=== PATIENT | female | born 1990 | race Caucasian/White ===

== ENCOUNTER 2021-10-01 08:51 | Emergency (ER) | payer MEDICAID, SELFPAY ==
[2021-10-01 08:56] VITALS: BP 135/84; PULSE 82; RESP 18; TEMP 36.5; O2SAT 98
--- NOTE | 2021-10-01 09:31 | W.ED.GENAD ---
Discharge Plan Disposition Patient Disposition: HOME Condition: Stable Discharge Details Clinical Impression: Acute otitis externa of right ear Primary Care Provider: Unknown,Unknown ED Provider: Rosmery Frecnh Home Meds and New Rx's Prescriptions: New Cipro HC 0.2-1 % drops,suspension 3 drp OT BID 10 Days Qty: 10 0RF methylprednisolone [Medrol (Jose)] 4 mg tablets,dose pack See Rx Instructions .ROUTE .COMPLEX Qty: 21 0RF Rx Instructions: orally per package directions Discharge Instructions Instructions: Otitis Externa (ED) Additional Instructions: Your symptoms appear consistent with an outer ear infection. This is an infection of your ear canal. Prescriptions for antibiotic eardrops and oral steroids have been sent electronically to your pharmacy. Drink plenty of fluids and get plenty of rest. Alternate tylenol and motrin as needed and directed for pain. You have been placed on care management's list to arrange for a follow-up appointment with a primary care doctor to establish care and for reevaluation. You were given Ear, Nose and Throat specialist contact information for follow-up information if needed. Return immediately to the emergency department if you develop any worsening or new concerning symptoms. Referrals: Thomas Real MD [ [facility] STAFF PHYSICIAN] - Discharge Data Discharge Physician: Rosmery French Medical Decision Making 31-year-old female presents with right ear pain and decreased hearing for the past 2 days. Also admits to mild decreased hearing in the left ear. Denies fever. Patient appears comfortable and nontoxic. Her left TM appears dull but no erythema or significant cerumen impaction. Right ear canal reveals edema and mild erythema with minimal clear discharge. Unable to view right TM. She has pain with pulling on auricle and palpation of tragus. She has mild bilateral anterior cervical lymphadenopathy, slightly increased on right side. Normal oropharynx. No sinus tenderness. Exam appears consistent with otitis externa. A wick was placed in the right ear canal. Prescription for Cipro HC and Medrol Dosepak sent electronically to her pharmacy. Urine test negative. She was placed on treatment as a first to arrange for a follow-up appoint with her primary care doctor to establish care and for reevaluation. She was also given ENT follow-up information if needed. Usual and customary return precautions given prior to discharge. HPI General Mode of arrival: ambulatory. Date/Time Provider Initiated Documentation: 10/01/21 08:52. Limitations to Documentation: no limitations. Information obtained by: patient. HPI Narrative: Patient is a 31-year-old female presents with right-sided hearing loss and pain for the past few days. She does admit to some mild muffled hearing in the left side but denies any left ear pain. She denies swimming recently. She states she had a similar episode occurring 1 year ago which resolved on its own only with Debrox drops. She states she started using [id number] hydrogen peroxide drops yesterday in her right ear. She denies any fever, sore throat, dental pain, dizziness or tinnitus. Related Data Home Medications Medication Instructions Recorded Confirmed ciprofloxacin 0.2 %-hydrocortisone 3 drp otic (ear) BID 10 days #10 mL 10/01/21 1 % ear drops,suspension (Cipro HC) methylprednisolone 4 mg tablets in See Rx Instructions PO .COMPLEX 10/01/21 a dose pack (Medrol (Jose)) #21 dose pk Previous Rx's Medication Instructions Recorded ciprofloxacin 0.2 %-hydrocortisone 3 drp otic (ear) BID 10 days #10 mL 10/01/21 1 % ear drops,suspension (Cipro HC) methylprednisolone 4 mg tablets in See Rx Instructions PO .COMPLEX 10/01/21 a dose pack (Medrol (Jose)) #21 dose pk Allergies Allergy/AdvReac Type Severity Reaction Status Date / Time No Known Allergies Allergy Unverified 10/01/21 08:59 General Stated Complaint: EarProblem CHERIE: 4 Review of Systems All systems reviewed & are unremarkable except as noted in HPI and below Constitutional Constitutional: Reports as per HPI, Denies chills and Denies fever(s) Eyes Eyes: Denies blurry vision ENT Ears, Nose, Mouth, and Throat: Denies dizziness, Reports otalgia, Reports hearing loss, Denies sore throat and Denies throat swelling Cardiovascular Cardiovascular: Denies chest pain and Denies dyspnea Respiratory Respiratory: Denies cough and Denies dyspnea Gastrointestinal Gastrointestinal: Denies abdominal pain, Denies diarrhea and Denies vomiting Genitourinary Genitourinary: Denies hematuria and Denies dysuria Musculoskeletal Musculoskeletal: Denies back pain and Denies numbness Integumentary/Breasts Skin/Breast: Denies lesions and Denies rash Neurologic Neurologic: Denies dizziness, Denies localized weakness and Denies numbness Allergic/Immunologic Allergic/Immunologic: Denies throat swelling PFSH All Active Problems (Updated 10/01/21 @ 10:12 by Rosmery French DO) Acute otitis externa of right ear (Acute) Medical History (Updated 10/01/21 @ 10:12 by Rosmery French DO) Seasonal allergies Surgical History (Updated 10/01/21 @ 10:12 by Rosmery French DO) No significant past surgical history Social History Smoking/Tobacco Use Status: Never Smoking risk assessment performed?: Yes Alcohol Intake: current Alcohol Intake frequency: holidays/special occasions only Drug use: Never Substance use type: does not use Do you feel safe at home: Yes Do you feel safe in your relationship?: Yes Exam Const General: cooperative, healthy appearing and no acute distress Orientation: alert, awake and oriented x3 HENMT Head: normal to inspection Ears: hearing grossly normal bilaterally, EAC abnormal erythema on the right, edema on the right, EAC tenderness on the right and otic discharge clear on the right and TM abnormal dull on the left General nose exam: external nose normal Mouth: oral mucosae normal Throat: posterior oropharynx normal Eyes General: appearance normal, both eyes and all related structures Neck Neck: normal visual inspection and lymphadenopathy (tender bilateral anterior cervical, slightly increased on right side) Resp Effort & Inspection: normal respiratory effort and able to speak in complete sentences Cardio Rate: regular rate Skin General skin exam: no rashes or lesions noted Neuro General: patient alert, patient awake and patient oriented x3 Motor: muscle tone normal throughout Extrem General: normal to inspection and full ROM Psych Appearance: grossly normal Affect: normal affect Course Vital Signs Vital signs: Vital Signs Temperature 97.7 F 10/01/21 08:56 Pulse 82 10/01/21 08:56 Respiratory Rate 18 10/01/21 08:56 Blood Pressure 135/84 10/01/21 08:56 Pulse Oximetry 98 10/01/21 08:56 Temperature 97.7 F 10/01/21 08:56 Temperature Source Temporal Artery Scan 10/01/21 08:56 Pulse 82 10/01/21 08:56 Respiratory Rate 18 10/01/21 08:56 Respiratory Effort Non-Labored 10/01/21 09:00 Blood Pressure 135/84 10/01/21 08:56 Blood Pressure Position Sitting 10/01/21 08:56 Pulse Oximetry 98 10/01/21 08:56 Oxygen Delivery Method Room Air 10/01/21 08:56 Oxygen Flow Rate 0 10/01/21 08:56 PAWSS Have you Been Recently Intoxicated or Drunk Within the Last 30 days?: No Have you Ever Experienced Previous Episodes of Alcohol Withdrawal?: No Have you ever Experienced Withdrawal Seizures?: No Have you ever Experienced Delirium Tremens(DT)s?: No Have you ever undergone Alcohol Rehabilitation Treatment (i.e, inpt ot outpatient treatment programs)?: No Have you ever Experienced Blackouts?: No Have you ever Combined Alcohol with other Downers within the last 90 days?: No Have you ever Combined Alcohol with any other Substance of Abuse during the last 90 days?: No Positive Blood Alcohol level on Presentation? [PCS.BAL]: No Evidence of Increased Autonomic Activity (i.e. HR>120, tremor, sweating, agitation, nausea)?: No Result: 0
--- NOTE | 2021-10-01 09:40 | NUR.NOTE ---
Nursing Note: Pt info given to care management to establish care & evaluate otitis media. Marti, ED
== END 2021-10-01 09:42 | disposition home or self-care (01) ==
PROVIDERS: Emergency Provider Physician Assistant
DX: H60.501 Unspecified acute noninfective otitis externa, right ear (principal); H91.92 Unspecified hearing loss, left ear
CPT/HCPCS: 99283; 99284

== ENCOUNTER → 2022-12-13 01:27 | Outpatient (CLI) | payer MEDICAID, SELFPAY ==
--- NOTE | 2022-12-13 07:45 | DI.MAMMO_ITS ---
Exam(s) US BREAST RT LIMITED MG MAMMO DIAGNOSTIC BI EXAM: MAMMO DIAGNOSTIC BI and U/S breast RT limited CLINICAL HISTORY: evaluate pathology, RT BREAST LUMP 9:00 FROM NIPPLE. TECHNIQUE: Craniocaudal and mediolateral oblique Full Field Digital Mammography views with Computer Aided Diagnosis followed by Tomosynthesis and limited right breast ultrasound. COMPARISON: There are no priors for comparison. This is a baseline mammogram. FINDINGS: Mammography/Tomosynthesis: Masses/Architectural Distortion: None seen. Microcalcifictions: No suspicious pleomorphic-type are seen. Skin Thickening/Nipple Retraction: None. Limited right breast US: Echotexture: Normal appearance of the glandular tissue. Shadowing: No suspicious foci. Cyst: None. Solid lesions: None seen. Ductal dilation: None. IMPRESSION: 1. No evidence of malignancy is noted. 2. Unless there is more urgent need, follow-up, as per [place] [employer] guidelines. 3. The findings were discussed with the patient on the date of the examination. BI-RADS Category 1 - Negative Breast Density - Category B - Scattered areas of fibroglandular density Breast density Category C or D implies that the patient has dense breast tissue. Dense breast tissue can make it harder to find cancer on a mammogram. Dense breast tissue is also associated with an incr eased risk of breast cancer. This information about the result of the mammogram report was provided to the patient to raise their awareness. Use this report when you speak with the patient about their risks for breast cancer, which includes their family history. At that time, you may recommend additional screening tests (Ultrasoun d or MRI) as these tests may add significant information. A negative radiographic report should not delay biopsy if a dominant or clinically suspicious mass is present. Up to ten percent of cancers are not identified on mammography. A negative report may reinforce clinical impression. Adenosis and dense breasts may obscure an underlying neoplasm. False positive reports average 6 to 10%. Patient will receive a letter notifying them of these results.
== END ==
PROVIDERS: PCP Nurse Practitioner Family; Visit Provider Nurse Practitioner Family
DX: N63.10 Unspecified lump in the right breast, unspecified quadrant (principal); Z12.31 Encounter for screening mammogram for malignant neoplasm of breast
CPT/HCPCS: 76642; 77062; 77066; G0279

== ENCOUNTER 2023-03-28 19:41 | Emergency (ER) | payer MEDICAID, SELFPAY ==
[2023-03-28 19:47] VITALS: BP 151/89; PULSE 90; RESP 18; TEMP 37; O2SAT 98
--- NOTE | 2023-03-28 20:07 | W.ED.GENAD ---
HPI General Date/Time Provider Initiated Documentation: 03/28/23 19:52. HPI Narrative: 32 year-old female presents to ED today by POV/ambulating with a chief complaint of known chronic dental decay of R lower molar, exacerbated while eating dinner tonight with severe dental pain. Quality described as throbbing, traveling up to denominational, no radiation to fever, trismus, vocal changes, excessive drooling, inability to tolerate PO intake. Severity is described as severe. Palliating factors include 2 Aleve with some relief. Provoking factors include nothing specific. Patient not anticoagulated. Related Data Home Medications Medication Instructions Recorded Confirmed amoxicillin 875 mg-potassium 1 tab PO BID dental infection 10 03/28/23 clavulanate 125 mg tablet days #20 tabs chlorhexidine gluconate 0.12 % 15 ml mucous membrane BID #1,893 mL 03/28/23 mouthwash Previous Rx's Medication Instructions Recorded amoxicillin 875 mg-potassium 1 tab PO BID dental infection 10 03/28/23 clavulanate 125 mg tablet days #20 tabs chlorhexidine gluconate 0.12 % 15 ml mucous membrane BID #1,893 mL 03/28/23 mouthwash Allergies Allergy/AdvReac Type Severity Reaction Status Date / Time No Known Allergies Allergy Unverified 03/28/23 19:49 General Stated Complaint: DentalOral CHERIE: 4 Review of Systems All systems reviewed & are unremarkable except as noted in HPI and below Exam Narrative Exam Narrative: GENERAL APPEARANCE: Well-nourished, non-toxic, awake and alert, atraumatic, no acute distress. SKIN: Warm, pink, dry, intact, without rashes/lesions/ulcerations. HEAD: Normocephalic, atraumatic, normal hair distribution for gender/age. EYES: Pupils PERRLA, EOMs intact without nystagmus, normal conjunctiva, no exudates on lids/lashes. ENT: Nares patent, no circumoral cyanosis, no facial swelling, chronic severe dental decay of right lower third molar, significant dental fracture, no visible gingival abscess, no trismus, managing secretions well without issue, no vocal changes, uvula midline, no neck swelling and tonsillar area, no lymphadenopathy NECK: Supple, trachea midline, painless cervical ROM. LUNGS/CHEST: Non-labored respirations, normal A/P diameter, symmetrical expansion, no chest wall deformity HEART (CV/PV): No peripheral edema, no JVD. ABDOMEN: Soft, non-distended, no guarding. MSK: Normal ROM, no swelling/deformity to bilateral UEs or LEs, moving all extremities without weakness, no cyanosis, spine midline without tenderness, normal curvature. NEURO: Mental Status AAOx4 - alert to person, place, time, events No facial droop, no forehead involvement. Motor: No focal weakness - strength 5/5 in bilateral UEs and LEs, proximal and distal, symmetric. Sensory: sensation intact to light touch globally. Gait normal: patient ambulated without ataxia into ED room. PSYCH: euthymic, cooperative, pleasant, appropriate speech Course Vital Signs Vital signs: Vital Signs Temperature 37.0 C 03/28/23 19:47 Pulse 90 03/28/23 19:47 Respiratory Rate 18 03/28/23 19:47 Blood Pressure 151/89 H 03/28/23 19:47 Pulse Oximetry 98 03/28/23 19:47 Temperature 37.0 C 03/28/23 19:47 Temperature Source Temporal Artery Scan 03/28/23 19:47 Pulse 90 03/28/23 19:47 Respiratory Rate 18 03/28/23 19:47 Respiratory Effort Normal 03/28/23 19:54 Blood Pressure 151/89 H 03/28/23 19:47 Pulse Oximetry 98 03/28/23 19:47 Pain Level 7 03/28/23 19:47 Medical Decision Making This dictation utilizes [id number] dictation software and may contain unedited grammatical errors. 32 y/o F presents to ED today with a chief complaint of acute on chronic dental decay, R lower molar, exacebated during dinner. Patient denies trismus, handling secretions. Patients' medical history: noncontributory. Family and social history: noncontributory. Pertinent exam findings / vital signs include ENT: Nares patent, no circumoral cyanosis, no facial swelling, chronic severe dental decay of right lower third molar, significant dental fracture, no visible gingival abscess, no trismus, managing secretions well without issue, no vocal changes, uvula midline, no neck swelling and tonsillar area, no lymphadenopathy. Differential / pathologies of concern include dental fracture, dental infection, not PIE TOPPER. Diagnostic studies of: -none. Interventions of: -Outpatient Rx's. ED Course/Assessment/Plan: Counseled the patient on starting Augmentin and the need for urgent dental follow-up, counseled on therapeutic dosing Tylenol and ibuprofen as well as other symptomatic treatments like Anbesol, clove's, provided chlorhexidine mouth rinse to prevent further exacerbation as well as to go pack of oxycodone for severe dental pain. Findings not consistent with peritonsillar abscess, epiglottitis, osteonecrosis of the jaw or large dental abscess. Disposition of dental infection. Patient verbalized understanding of the plan and return to ED criteria and engaged in shared decision making. Medical Records Medical records reviewed: Yes I reviewed the patient's medical records. Quality:SDOH Health Related Social Needs: No Data to Display PFSH All Active Problems (Updated 03/28/23 @ 20:15 by JD Guerra) Dental infection (Acute) Seasonal allergies (Acute) Anxiety (Chronic) Major depression (Chronic) Surgical History (Updated 10/01/21 @ 10:12 by Rosmery French DO) No significant past surgical history Family History (Updated 03/16/23 @ 12:16 by Gwendolyn Tipton) Father Alcohol use disorder Depression Hypertension Stroke Chronic mental illness Brother Asthma Maternal Grandfather Diabetes Heart disease Hypertension Paternal Grandmother Alcohol use disorder Paternal Grandfather Alcohol use disorder Social History (Updated 03/16/23 @ 12:15 by Gwendolyn Tipton) Smoking/Tobacco Use Status: Never Second Hand Exposure: Yes Smoking risk assessment performed?: Yes Alcohol Intake: never Drug use: Never Substance use type: does not use Adopted: No Caregiver/Support person: No Foster care: No Household members: significant other Housing: house Number of Children: 0 Communication Needs: Corrective Lenses Education Level: high school Pets and animals: Yes Pets and animals: cat(s), dog(s) and other Details: rabbit Sexually active: Yes Do you think of yourself as: straight/heterosexual Current gender identity: female What is your relationship status?: living with partner How often do you talk on the phone with friends or family?: once per week How often do you get together with friends or relatives?: never How often do you attend jew or roman catholic services?: decline to answer Do you belong to any clubs or organized social groups?: no Panel score (0-1 are the most socially isolated patients): 1 What type of physical activity do you participate in: walking Tere/Taoist: None Special tere needs: No Agree to transfusion: Yes Seatbelt use: always Helmet use: Yes Helmet use: always Drive intox or ride w/intox paratransit driver: No Working smoke detector in home: Yes Carbon monox detector in home: Yes Firearms in home: No Do you feel safe at home: Yes Do you feel safe in your relationship?: Yes Victim of physical abuse: No Victim of emotional abuse: No Victim of sexual abuse: No Discharge Plan Disposition Patient Disposition: Home Condition: Stable Discharge Details Clinical Impression: Dental infection Primary Care Provider: Shahida Jesus ED Provider: [place] Home Meds and New Rx's Prescriptions: New amoxicillin-pot clavulanate 875-125 mg tablet 1 tab PO BID 10 Days Qty: 20 0RF chlorhexidine gluconate 0.12 % mouthwash 15 ml mucous membrane BID Qty: 1893 0RF Rx Instructions: swish and spit with 15mL by mouth twice per day Discharge Instructions Instructions: Chlorhexidine (Into the mouth), Amoxicillin/Clavulanate Potassium (By mouth), Dental Abscess (ED) Additional Instructions: You were seen in the emergency department for your fractured right lower molar with likely infection. I am starting you on the antibiotic Augmentin started tonight and the rest was sent to [facility] in [place]. You need to be taking 1000 mg of Tylenol every 6 hours, for the first week you can take 440 mg of Aleve twice per day but do not take any other NSAIDs with this like ibuprofen. I have sent you home with a small to go pack of oxycodone for breakthrough pain. You need to purchase [id number] Anbesol and apply topically to the area of pain, use the prescribed antibiotic mouth rinse twice per day to prevent further exacerbation of dental pain due to dental decay. Perform salt water gargles 3 times per day with warm salt water. Research homeopathic remedies like clove's for dental pain and follow-up with a dentist as soon as possible. Please return to the ED for any inability to move your jaw, excessive vocal changes or severe drooling. Referrals: [facility] [Provider Group] Shahida Jesus NP [Primary Care Provider] -
[2023-03-28] MEDS: Acetaminophen 500 MG TAB 1000 MG PO (20:27)
[2023-03-28] MEDS: Amoxicillin 875/Clav. 125 TAB PO (20:28)
[2023-03-28] MEDS: oxyCODONE 5 MG TAB PO (20:28)
== END 2023-03-28 20:29 | disposition home or self-care (01) ==
PROVIDERS: Emergency Provider Physician Assistant; PCP Nurse Practitioner Family
DX: R68.84 Jaw pain (principal); K04.7 Periapical abscess without sinus
CPT/HCPCS: 99283

== ENCOUNTER 2023-04-27 19:12 | Outpatient (REF) | payer MEDICAID, SELFPAY ==
--- NOTE | 2023-04-27 16:45 | PAPFT_PTH ---
PATIENT: Selina Jett LOC: [facility]#:[id number] AGE/SX: 32/F ROOM: RE04/27/[address]: Shahida Jesus NP : 1990 BED: DIS: 04/27/2023 SPEC #: [id number] RECD: 04/28/23 12:45 STATUS: ESME RETheresa #: [id number] TALI: 04/27/23 16:[address]: Shahida Jesus DEPT: [facility] Cytology RECD BY: Tricia Tom Tissues: 1 - CX/ENDOCX FOR PAP SMEARS Procedures: PAP THIN PREP/UVM Screening HPV DNA PROBE Comments: [id number]
== END 2023-04-27 19:13 | disposition home or self-care (01) ==
LOC: LBN 19:12
PROVIDERS: PCP Nurse Practitioner Family; Visit Provider Nurse Practitioner Family
DX: Z12.4 Encounter for screening for malignant neoplasm of cervix (principal); Z11.51 Encounter for screening for human papillomavirus (HPV)
CPT/HCPCS: 88142; 87624

== ENCOUNTER 2023-09-28 13:37 | Outpatient (REF) | payer MEDICAID, SELFPAY ==
[2023-09-28 13:52] LABS: Bilirubin Negative (Negative); Blood Negative (Negative); Clarity Clear (Clear); Glucose Negative (Negative); Ketones Negative (Negative); Leukocyte Esterase Negative (Negative); Nitrite Negative (Negative); Specific Gravity >= 1.030 (1.005-1.025); Urobilinogen 0.2 mg/dL (Up to 0.2); pH 5.5 (5-8)
== END 2023-09-28 13:38 | disposition home or self-care (01) ==
LOC: LBN 13:37
PROVIDERS: PCP Nurse Practitioner Family; Visit Provider Nurse Practitioner Family
DX: N89.8 Other specified noninflammatory disorders of vagina (principal); R82.90 Unspecified abnormal findings in urine; Z00.00 Encounter for general adult medical examination without abnormal findings
CPT/HCPCS: 81003; 87480; 87510; 87660

== ENCOUNTER 2023-10-11 03:24 | Outpatient (CLI) | payer MEDICAID, SELFPAY ==
[2023-10-11 10:50] LABS: Hemoglobin A1C 5.2 % (<5.7)
[2023-10-11 11:10] LABS: Anion Gap 8.1 mmol/L (3-11); BUN 9 mg/dL (7-18); CO2 26.9 mmol/L (21.0-32.0); CREATININE 0.7 mg/dL (0.55-1.02); Calcium 9.3 mg/dL (8.5-10.1); Calculated LDL 104 mg/dL (<100); Chloride 104 mmol/L (98-107); Cholesterol 162 mg/dL (<200); Estimated GFR 115.59 (mL/min/1.73m2); Glucose 103 mg/dL (74-106); HDL Cholesterol 41 mg/dL (40-60); Potassium 4.1 mmol/L (3.5-5.1); Sodium 139 mmol/L (136-145); TSH (W/Ref FT4) 3.72 uIU/mL (0.36-3.74); Triglyceride 88 mg/dL (<150)
== END 2023-10-11 03:25 | disposition home or self-care (01) ==
LOC: LBO 03:24
PROVIDERS: PCP Nurse Practitioner Family; Visit Provider Nurse Practitioner Family
DX: Z00.00 Encounter for general adult medical examination without abnormal findings (principal)
CPT/HCPCS: 36415; 80048; 80061; 83036; 84443

== ENCOUNTER 2024-02-05 02:37 | Outpatient (CLI) | payer MEDICAID, SELFPAY ==
[2024-02-05 14:48] LABS: HCT 38.9 % (36.0-46.0); HGB 12.3 g/dL (11.2-15.7); MCH 23.7 pg (27.0-33.0); MCHC 31.6 % (32.0-36.0); MCV 75 fL (80-95); MPV 9.3 fL (8.0-11.0); Platelet Count 340 10^3/uL (130-400); RDW 13.3 % (11.7-14.6); RDW-SD 35.7 fL; WBC 6.82 10^3/uL (4.4-10.8)
[2024-02-05 16:31] LABS: Anion Gap 11.5 mmol/L (3-11); BUN 11 mg/dL (7-18); CO2 25.5 mmol/L (21.0-32.0); CREATININE 0.7 mg/dL (0.55-1.02); Calcium 9.2 mg/dL (8.5-10.1); Chloride 106 mmol/L (98-107); Estimated GFR 115.59 (mL/min/1.73m2); Glucose 85 mg/dL (74-106); Potassium 4.2 mmol/L (3.5-5.1); Sodium 143 mmol/L (136-145); TSH (W/Ref FT4) 3.05 uIU/mL (0.36-3.74)
[2024-02-05 22:03] LABS: Progesterone 3.6 ng/mL (See Table)
[2024-02-05 22:28] LABS: FSH 6.3 mIU/mL (See Note); LH 5.1 mIU/mL (See Note)
[2024-02-09 15:06] LABS: Estradiol, Mass Spectrometry 107 pg/mL; Estrone 125 pg/mL
[2024-02-15 17:36] LABS: Testosterone, Free 0.55 ng/dL (<0.13-1.00); Testosterone, Total 41 ng/dL (8-60)
== END 2024-02-05 02:38 | disposition home or self-care (01) ==
LOC: LBO 02:37
PROVIDERS: PCP Nurse Practitioner Family; Visit Provider Nurse Practitioner Family
DX: N92.6 Irregular menstruation, unspecified (principal); R53.83 Other fatigue; L65.9 Nonscarring hair loss, unspecified; R23.2 Flushing; N95.1 Menopausal and female climacteric states; Z00.00 Encounter for general adult medical examination without abnormal findings
CPT/HCPCS: 36415; 80048; 84402; 84403; 85027; 82670; 82679; 83001; 83002; 84144; 84443

== ENCOUNTER 2024-04-18 01:50 | Outpatient (CLI) | payer MEDICAID, SELFPAY ==
--- NOTE | 2024-04-18 | DI.US_ITS ---
Exam(s) US PELVIS TRANSVAGINAL EXAM: US PELVIS TRANSVAGINAL CLINICAL HISTORY: ABNL UTERINE BLEEDING, SPOTTING BETWEEN CYCLES,n93.9 TECHNIQUE: Transabdominal and transvaginal imaging was performed using standard protocol. COMPARISON: No exams were available for comparison FINDINGS: UTERUS: Anteverted. 5.8 x 4.5 x 4.9 cm Endometrium: 4 mm Myometrium: Unremarkable. Cervix: Unremarkable. OVARIES: Right: Cyst or mass: None. Left: Cyst or mass: None. DOPPLER: Color: Symmetric and uniform flow to both ovaries. No hyperemia. CUL-DE-SAC: Free fluid: None. IMPRESSION: 1. Normal-appearing uterus with endometrial stripe within normal limits. 2. Unremarkable bilateral ovaries. DATA REPOSITORY:
== END 2024-04-18 02:10 ==
PROVIDERS: PCP Nurse Practitioner Family; Visit Provider Nurse Practitioner Family
DX: N93.9 Abnormal uterine and vaginal bleeding, unspecified (principal)
CPT/HCPCS: 76830; 76856